=== PATIENT | female | born 1975 ===

== ENCOUNTER → 2018-07-09 18:10 | Outpatient (REF) | payer OTHER, SELFPAY ==
[2018-07-09 19:50] LABS: HCG Quantitative /Beta subunit < 2.39 mIU/mL
== END ==
LOC: LAB 18:10
PROVIDERS: Visit Provider Nurse Practitioner Family
DX: Z13.220 Encounter for screening for lipoid disorders (principal); N92.6 Irregular menstruation, unspecified
CPT/HCPCS: 84702